=== PATIENT | male | born 1960 | race Caucasian/White ===

== ENCOUNTER 2017-01-21 07:43 | Day surgery (SDC) | payer OTHER ==
[2017-01-21 08:17] VITALS: BMI 32.8
[2017-01-21] MEDS ORDERED: BUPIVACAINE HCL/EPINEPHRINE/PF 30 ML VIAL IJ ONE (08:48)
[2017-01-21] MEDS ORDERED: PROPOFOL 20 ML ONE ×2 (09:29)
[2017-01-21] MEDS ORDERED: MIDAZOLAM HCL 2 MG/2 ML SINGLE DOSE VIAL ONE (09:31)
[2017-01-21] MEDS ORDERED: DEXAMETHASONE SOD PHOSPHATE 4 MG/1 ML VIAL ONE (10:13)
[2017-01-21] MEDS ORDERED: ONDANSETRON 4 MG/2 ML VIAL ONE (10:13)
--- NOTE | 2017-01-21 11:05 | OP ---
Operative Note - Note: Operative Date: 01/21/17 Pre-Operative Diagnosis: Right knee LMT Operation: RKA, lateral meniscus repari Post-Operative Diagnosis: Same as Pre-op Surgeon: Domenic Sánchez Cylinder Dyer: Teddy Acevedo Anesthesia: General Operative Report Dictated: Yes
--- NOTE | 2017-01-21 11:05 | DS ---
Physical Examination Vital Signs: Vital Signs Temperature 98.8 F 01/21/17 08:08 Pulse Rate 72 01/21/17 08:08 Respiratory Rate 20 01/21/17 08:08 Blood Pressure 126/87 01/21/17 08:08 O2 Sat by Pulse Oximetry (%) 97 01/21/17 08:08 Discharge Summary Reason For Visit: MEDIAL MENISCAL TEAR, RIGHT KNEE Condition: Good - Instructions Diet, Activity, Other Instructions: Post Operative Instructions: Knee Arthroscopy Dr Domenic Sánchez 1. Pain following an arthroscopy is variable. Some patients will have more pain than others. You have been provided with a prescription for medication that contains a narcotic. You are not allowed to drive while on this medication. Feel free to take medications such as Ibuprofen or Naprosyn in addition to the pain medicine if you do not have any problems with the NSAID class of medications. 2. You are allowed to remove the bandages and shower in 24 hours unless directed otherwise. You are not allowed to bathe or go swimming until the sutures are removed. Put band-aids on the sutures after your shower and do not put any creams or lotions over the incisions. 3. You are allowed to put all your weight on the leg and bend your knee. Because we repaired the meniscus you can not squat, pivot or twist for 6 weeks. 4. Apply ice to the knee for 15 min every hour or so. You may continue this for as many days as you like. 5. Please call the office to schedule a visit to have your incision checked. 6. If for any reason you believe you may have an infection or are concerned, please feel free to call me. I can be reached through our office number 24 hours a day. 7. Please call our office with any questions; we will review the surgical findings during your post operative visit. Disposition: HOME - Home Medications Comprehensive Discharge Medication List: Ambulatory Orders Allopurinol [Zyloprim -] 300 mg PO DAILY 09/18/14 Ascorbic Acid [Vitamin C -] 1,000 mg PO DAILY 09/18/14 Docosahexanoic Acid/Epa [Fish Oil Softgel] 1 each PO DAILY 09/18/14 Multivitamins [Multivit ([facility] Formul[facility])] 1 tab PO DAILY 09/18/14 Sildenafil Citrate [Viagra] 100 mg PO ASDIR 09/18/14 Aspirin [ASA -] 81 mg PO DAILY 01/20/17 Atorvastatin Ca [Lipitor] 10 mg PO HS 01/20/17 Carvedilol 3.125 mg PO BID 01/20/17 Cetirizine HCl [Zyrtec -] 10 mg PO DAILY 01/20/17 Clopidogrel Bisulfate [Clopidogrel] 75 mg PO DAILY 01/20/17 Escitalopram Oxalate [Lexapro -] 10 mg PO DAILY 01/20/17 Tadalafil [Cialis] 20 mg PO ASDIR 01/20/17 Trazodone HCl 50 mg PO HS 01/20/17 Valsartan 40 mg PO DAILY 01/20/17
[2017-01-21 11:49] VITALS: TEMP 98
[2017-01-21 12:41] VITALS: BP 118/85; PULSE 82
--- NOTE | 2017-01-25 16:12 | PATH ---
Surgical Pathology Report Patient Name: CINDY BAILON [facility]. Rec. #: [id number] /Age/Gender: 1960 (Age: 56) / M Account: [id number] Location: [facility] AMBULATORY Taken: 01/21/2017 Received: 01/21/2017 Reported: 01/25/2017 Physicians: Domenic Sánchez M.D. Specimen(s) Received SHAVINGS RIGHT KNEE Clinical History Right medial meniscus tear Final Diagnosis KNEE, RIGHT, ARTHROSCOPIC SHAVINGS: FIBROCARTILAGINOUS AND FIBROSYNOVIAL TISSUE SHOWING NODULAR AGGREGATES OF CALCIFIC MATERIAL, CONSISTENT WITH CHONDROCALCINOSIS (PSEUDOGOUT). Electronically Signed Padmini Byrd M.D. Gross Description Received in formalin, labeled "shavings right knee," is a 2.2 x 1.0 x 0.2 cm. aggregate of fisher-yellow soft tissue fragments. The formalin is filtered and the specimen is entirely submitted in one cassette.. 01/24/201701/24/2017
== END 2017-01-21 12:25 | disposition home or self-care (01) ==
LOC: FASU 07:43
PROVIDERS: ATTEND Orthopaedic Surgery
PROC: 0SQC4ZZ Repair Right Knee Joint, Percutaneous Endoscopic Approach (ICD-10-PCS; principal; 2017-01-21 10:26)
DX: S83.281A Other tear of lateral meniscus, current injury, right knee, initial encounter (principal); X58.XXXA Exposure to other specified factors, initial encounter; Y93.9 Activity, unspecified; Y92.9 Unspecified place or not applicable
CPT/HCPCS: 88304-TC; 94760